=== PATIENT | male | born 1955 | race Caucasian/White ===

== ENCOUNTER 2018-08-14 14:11 | Emergency (ER) | payer MEDICAID, OTHER ==
[~2018-08-14] VITALS: Ht 170.2 cm; Wt 68.0 kg
--- NOTE | 2018-08-14 14:24 | ED Chest Pain ---
General Chief Complaint: Chest Pain Stated Complaint: CHEST PAIN; SOB Source: patient, RN notes reviewed Exam Limitations: no limitations History of Present Illness Date Seen by Provider: Aug 14, 2018 Time Seen by Provider: 14:23 Associated Symptoms: shortness of breath 62-year-old man with central substernal nonradiating chest pain that started 2 days ago. The pain starts following shortness of breath. He has chronic shortness of breath to cigarette smoking. Other CAD risk factors. Nothing provokes, nothing improves or worsens the pain. Pain last for about 30 minutes. Having productive cough with green sputum. No fevers or chills. Allergies and Home Medications Allergies Coded Allergies: No Known Drug Allergies (Unverified , 08/14/18) Home Medications Levofloxacin 750 Mg Tablet, 750 MG PO DAILY Prescribed by: GIO BAR on 08/14/18 1621 Patient Home Medication List Home Medication List Reviewed: Yes Review of Systems Review of Systems Constitutional: No chills, No fever Respiratory: Cough, Shortness of Air (intermittent) Cardiovascular: See HPI Gastrointestinal: Denies Nausea, Denies Vomiting Past Srprgxz-Cgkjvm-Brnplr Hx Past Med/Social Hx: Reviewed Nursing Past Med/Soc Hx Patient Social History Smoking Status: Current Everyday Smoker Recent Foreign Travel: No Contact w/Someone Who Travel: No Physical Exam Vital Signs Vital Signs - First Documented 08/14/18 14:15 Temp 98.0 Pulse 68 Resp 17 B/P (MAP) 159/90 (113) Pulse Ox 98 O2 Delivery Room Air Capillary Refill : Height, Weight, BMI Height: '" Weight: lbs. oz. kg; BMI Method: General Appearance: No Apparent Distress, WD/WN HEENT: PERRL/EOMI, TMs Normal, Normal ENT Inspection, Pharynx Normal Neck: Full Range of Motion, Normal Inspection Respiratory: Chest Non Tender, Lungs Clear, No Accessory Muscle Use, No Respiratory Distress, Decreased Breath Sounds Cardiovascular: Regular Rate, Rhythm, No Edema, No Gallop, No JVD, No Murmur, Normal Peripheral Pulses Extremity: Normal Capillary Refill, Normal Inspection, Normal Range of Motion, No Calf Tenderness Neurologic/Psychiatric: Alert, Oriented x3 Skin: Normal Color, Warm/Dry Progress/Results/Core Measures Results/Orders Lab Results Laboratory Tests Test 08/14/18 14:35 Range/Units White Blood Count 2.8 L 4.3-11.0 10^3/uL Red Blood Count 5.07 4.35-5.85 10^6/uL Hemoglobin 15.6 13.3-17.7 G/DL Hematocrit 46 40-54 % Mean Corpuscular Volume 90 80-99 FL Mean Corpuscular Hemoglobin 31 25-34 PG Mean Corpuscular Hemoglobin Concent 34 32-36 G/DL Red Cell Distribution Width 12.9 10.0-14.5 % Platelet Count 196 130-400 10^3/uL Mean Platelet Volume 9.7 7.4-10.4 FL Neutrophils (%) (Auto) 29 L 42-75 % Lymphocytes (%) (Auto) 55 H 12-44 % Monocytes (%) (Auto) 14 H 0-12 % Eosinophils (%) (Auto) 1 0-10 % Basophils (%) (Auto) 1 0-10 % Neutrophils # (Auto) 0.8 L 1.8-7.8 X 10^3 Lymphocytes # (Auto) 1.5 1.0-4.0 X 10^3 Monocytes # (Auto) 0.4 0.0-1.0 X 10^3 Eosinophils # (Auto) 0.0 0.0-0.3 10^3/uL Basophils # (Auto) 0.0 0.0-0.1 10^3/uL Prothrombin Time 13.2 12.2-14.7 SEC INR Comment 1.0 0.8-1.4 Activated Partial Thromboplast Time 33 24-35 SEC Sodium Level 137 135-145 MMOL/L Potassium Level 3.3 L 3.6-5.0 MMOL/L Chloride Level 97 L 98-107 MMOL/L Carbon Dioxide Level 26 21-32 MMOL/L Anion Gap 14 5-14 MMOL/L Blood Urea Nitrogen 6 L 7-18 MG/DL Creatinine 0.78 0.60-1.30 MG/DL Estimat Glomerular Filtration Rate > 60 BUN/Creatinine Ratio 8 Glucose Level 80 70-105 MG/DL Calcium Level 8.9 8.5-10.1 MG/DL Corrected Calcium 8.8 8.5-10.1 MG/DL Magnesium Level 1.9 1.8-2.4 MG/DL Total Bilirubin 0.7 0.1-1.0 MG/DL Aspartate Amino Transf (AST/SGOT) 107 H 5-34 U/L Alanine Aminotransferase (ALT/SGPT) 96 H 0-55 U/L Alkaline Phosphatase 85 40-136 U/L Troponin T 6 <=15 NG/L B-Type Natriuretic Peptide 176.2 H <100.0 PG/ML Total Protein 7.9 6.4-8.2 GM/DL Albumin 4.1 3.2-4.5 GM/DL My Orders Orders - GIO BAR MD Cbc With Automated Diff (08/14/18 14:29) Magnesium (08/14/18 14:29) Chest 1 View Ap/Pa Only (08/14/18 14:29) Ekg Tracing (08/14/18 14:29) Comprehensive Metabolic Panel (08/14/18 14:29) Protime With Inr (08/14/18 14:29) Partial Thromboplastin Time (08/14/18 14:29) O2 (08/14/18 14:29) Monitor-Rhythm Ecg Trace Only (08/14/18 14:29) Saline Lock/Iv-Start (08/14/18 14:29) BNP (08/14/18 14:29) Levofloxacin 750 Mg/150 Ml Iv (Levaquin (08/14/18 16:15) Medications Given in ED Current Medications Medications Dose Ordered Sig/Shiloh Route Start Time Stop Time Status Last Admin Dose Admin Levofloxacin/ Dextrose 150 ml @ 100 mls/hr ONCE ONCE IV 08/14/18 16:15 08/14/18 17:44 08/14/18 16:21 100 MLS/HR Vital Signs/I&O 08/14/18 14:15 Temp 98.0 Pulse 68 Resp 17 B/P (MAP) 159/90 (113) Pulse Ox 98 O2 Delivery Room Air Progress Progress Note : Progress Note Not hypoxic. Symptoms of early PNA. Will cover with Levaquin, first dose here. Initial ECG Impression Date: Aug 14, 2018 Initial ECG Impression Time: 14:23 Initial ECG Rate: 65 Initial ECG Rhythm: Normal Sinus Initial ECG Intervals: Normal Initial ECG Impression: Normal Initial ECG Comparisson: No Previous ECG Available Comment Sinus rhythm 65 bpm normal axis, normal intervals, no hypertrophy, no STEMI Diagnostic Imaging Diagonstic Imaging: Xray Plain Films/CT/US/NM/MRI: chest Comments Hyperinflation, scarring versus early right lower lobe infiltrate CAP: Antibiotics (s) Departure Impression Primary Impression: Pneumonia Disposition: 01 HOME, SELF-CARE Condition: Improved Departure-Patient Inst. Decision time for Depature: 16:18 Referrals: NO,LOCAL PHYSICIAN (PCP) Primary Care Physician Patient Instructions: Chronic Obstructive Pulmonary Disease (COPD), Including Emphysema, Community-Acquired Pneumonia in Adults Scripts Levofloxacin (Levaquin) 750 Mg Tablet 750 MG PO DAILY for 7 Days, #7 TAB 0 Refills Prov: GIO BAR MD 08/14/18 GIO BAR MD Aug 14, 2018 14:24
[2018-08-14 14:59] LABS: BASOPHILS % (AUTO) 1 % (0-10); EOSINOPHILS % (AUTO) 1 % (0-10); HEMATOCRIT 46 % (40-54); HEMOGLOBIN 15.6 G/DL (13.3-17.7); LYMPHOCYTES # (AUTO) 1.5 X 10^3 (1.0-4.0); LYMPHOCYTES % (AUTO) 55 % (12-44); MEAN CORPUSCULAR HEMOGLOBIN 31 PG (25-34); MEAN CORPUSCULAR HGB CONC 34 G/DL (32-36); MEAN CORPUSCULAR VOLUME 90 FL (80-99); MEAN PLATELET VOLUME 9.7 FL (7.4-10.4); MONOCYTES # (AUTO) 0.4 X 10^3 (0.0-1.0); MONOCYTES % (AUTO) 14 % (0-12); NEUTROPHILS # (AUTO) 0.8 X 10^3 (1.8-7.8); NEUTROPHILS % (AUTO) 29 % (42-75); PLATELET COUNT 196 10^3/uL (130-400); RED CELL DISTRIBUTION WIDTH 12.9 % (10.0-14.5); WHITE BLOOD COUNT 2.8 10^3/uL (4.3-11.0)
[2018-08-14 15:05] LABS: PROTHROMBIN TIME PATIENT 13.2 SEC (12.2-14.7)
--- NOTE | 2018-08-14 15:08 | NUR ---
RESTING IN BED DENIES NEEDS AT THIS TIME.
--- NOTE | 2018-08-14 15:14 | Diagnostic Imaging Report ---
INDICATION: Chest pain and dyspnea. There is hyperexpansion of both lungs. There is increased density in the right base which may be due to infiltrate of indeterminate age. There is no evidence of pneumothorax or significant pleural fluid. IMPRESSION: Air trapping likely due to background emphysema. Increased density in right lung base could be chronic and related to chronic infiltrate, although superimposed pneumonitis such as from aspiration cannot be excluded. Clinical correlation is recommended. Dictated by: Dictated on workstation # [id number]
[2018-08-14 15:24] LABS: CARBON DIOXIDE 26 MMOL/L (21-32); CHLORIDE 97 MMOL/L (98-107); POTASSIUM 3.3 MMOL/L (3.6-5.0); SODIUM 137 MMOL/L (135-145)
[2018-08-14 15:25] LABS: ALANINE AMINOTRANSFERASE 96 U/L (0-55); ALBUMIN 4.1 GM/DL (3.2-4.5); ALKALINE PHOSPHATASE 85 U/L (40-136); BILIRUBIN,TOTAL 0.7 MG/DL (0.1-1.0); BUN/CREATININE RATIO 8; CALCIUM 8.9 MG/DL (8.5-10.1); CREATININE SERUM 0.78 MG/DL (0.60-1.30); GFR ESTIMATED > 60; GLUCOSE 80 MG/DL (70-105); MAGNESIUM 1.9 MG/DL (1.8-2.4); TOTAL PROTEIN 7.9 GM/DL (6.4-8.2)
--- NOTE | 2018-08-14 16:09 | NUR ---
RESTING IN BED ET DENIES NEEDS AT THIS TIME.
[2018-08-14] MEDS ORDERED: LEVOFLOXACIN 750 MG/150 ML IV 150 ML IV ONE (16:15)
[2018-08-14] MEDS ORDERED: LEVO750T9 PO (16:21)
[2018-08-14 17:50] VITALS: BP 138/68
== END 2018-08-14 17:49 | disposition home or self-care (01) ==
LOC: ER FS 14:14
DX: J18.9 Pneumonia, unspecified organism (principal); F17.200 Nicotine dependence, unspecified, uncomplicated
CPT/HCPCS: 36415; 71045; 80053; 83735; 83880; 84484; 85025; 85610; 85730; 93041

== ENCOUNTER 2019-03-27 12:04 | Emergency (ER) | payer MEDICAID ==
[~2019-03-27] VITALS: Ht 170 cm; Wt 59.0 kg
[~2019-03-27 12:04] MED LIST: LEVO750T9 PO
--- NOTE | 2019-03-27 12:25 | ED General ---
General Stated Complaint: DEPAKOTE OVERDOSE History of Present Illness Date Seen by Provider: Mar 27, 2019 Time Seen by Provider: 12:17 Initial Comments Patient presents with complaint of feeling dizzy and off-balance for last 3 days some associated blurring of his vision. Admits that 3 days ago he started Depakote for his seizures and is also on his "mental health" medications, but he does not recall the names of. Denies any chest pain or shortness of air. Denies abdominal pain nausea vomiting. Further inquiry, nurse called pharmacy. Pt taking Depakote, seruquel and wellbutrin, then Dr Saini started Dilantin 1 wk ago (300tid) Allergies and Home Medications Allergies Coded Allergies: No Known Drug Allergies (Unverified , 08/14/18) Home Medications Levofloxacin 750 Mg Tablet, 750 MG PO DAILY Prescribed by: GIO BAR on 08/14/18 1627 Patient Home Medication List Home Medication List Reviewed: Yes Review of Systems Review of Systems Constitutional: see HPI, dizziness; No fever, No malaise, No weight gain, No weight loss EENTM: no symptoms reported Respiratory: No cough, No dyspnea on exertion, No hemoptysis, No orthopnea, No phlegm, No short of breath Cardiovascular: No chest pain Gastrointestinal: No abdominal pain, No nausea, No vomiting Musculoskeletal: No back pain, No joint pain, No muscle pain Psychiatric/Neurological: Denies Headache, Denies Numbness, Denies Paresthesia, Denies Pre-Existing Deficit; Seizure (few days ago and PCP started him on new medication); Denies Tingling, Denies Tremors, Denies Weakness Past Kraxipp-Yvcpjh-Gocccc Hx Past Med/Social Hx: Reviewed Nursing Past Med/Soc Hx Patient Social History Recent Foreign Travel: No Recent Hopitalizations: No Past Medical History Surgeries: No Respiratory: No Cardiac: Yes (UN DIAGNOSED HYPERTENSION) Hypertension Genitourinary: No Gastrointestinal: No Musculoskeletal: No Endocrine: No HEENT: No Cancer: No Psychosocial: No Integumentary: No Physical Exam Vital Signs Vital Signs - First Documented 03/27/19 03/27/19 12:30 12:38 Temp 36.7 Pulse 60 66 66 Resp 15 B/P (MAP) 119/78 (92) 131/76 (94) 110/73 (85) Pulse Ox 100 Capillary Refill : Height, Weight, BMI Height: 5'7.00" Weight: 150lbs. oz. 68.982454bh; BMI Method:Stated General Appearance: No Apparent Distress, WD/WN Eyes: Bilateral Eye PERRL, Bilateral Eye EOMI HEENT: PERRL/EOMI, TMs Normal, Normal ENT Inspection, Pharynx Normal Neck: Normal Inspection, Non Tender, Supple; No JVD Respiratory: Chest Non Tender, Lungs Clear, Normal Breath Sounds Cardiovascular: Regular Rate, Rhythm, No Edema, No Gallop, No JVD, No Murmur, Normal Peripheral Pulses Gastrointestinal: Normal Bowel Sounds, Non Tender, Soft; No Distended, No Guarding Back: Normal Inspection, No CVA Tenderness, No Vertebral Tenderness Extremity: Normal Capillary Refill, Non Tender Neurologic/Psychiatric: Alert, Oriented x3, No Motor/Sensory Deficits, Normal Mood/Affect, sr risk management consultant II-XII Norm as Tested Progress/Results/Core Measures Suspected Sepsis SIRS Temperature: Pulse: Respiratory Rate: Laboratory Tests 03/27/19 12:30: White Blood Count 3.8L Blood Pressure / Mean: Laboratory Tests 03/27/19 12:30: Creatinine 1.00, Platelet Count 169, Total Bilirubin 0.5 Results/Orders Lab Results Laboratory Tests Test 03/27/19 12:05 03/27/19 12:15 03/27/19 12:30 Range/Units Urine Color YELLOW Urine Clarity CLEAR Urine pH 7.5 5-9 Urine Specific [place] 1.010 L 1.016-1.022 Urine Protein NEGATIVE NEGATIVE Urine Glucose (UA) NEGATIVE NEGATIVE Urine Ketones NEGATIVE NEGATIVE Urine Nitrite NEGATIVE NEGATIVE Urine Bilirubin NEGATIVE NEGATIVE Urine Urobilinogen 0.2 NORMAL MG/DL Urine Leukocyte Esterase NEGATIVE NEGATIVE Urine RBC (Auto) NEGATIVE NEGATIVE Urine RBC NONE /HPF Urine WBC NONE /HPF Urine Squamous Epithelial Cells 0-2 /HPF Urine Crystals NONE /LPF Urine Bacteria NONE /HPF Urine Casts NONE /LPF Urine Mucus TRACE /LPF Urine Culture Indicated NO Urine Opiates Screen NEGATIVE NEGATIVE Urine Oxycodone Screen NEGATIVE NEGATIVE Urine Methadone Screen NEGATIVE NEGATIVE Urine Propoxyphene Screen NEGATIVE NEGATIVE Urine Barbiturates Screen POSITIVE H NEGATIVE Ur Tricyclic Antidepressants Screen NEGATIVE NEGATIVE Urine Phencyclidine Screen NEGATIVE NEGATIVE Urine Amphetamines Screen NEGATIVE NEGATIVE Urine Methamphetamines Screen NEGATIVE NEGATIVE Urine Benzodiazepines Screen NEGATIVE NEGATIVE Urine Cocaine Screen NEGATIVE NEGATIVE Urine Cannabinoids Screen NEGATIVE NEGATIVE White Blood Count 3.8 L 4.3-11.0 10^3/uL Red Blood Count 4.70 4.35-5.85 10^6/uL Hemoglobin 14.8 13.3-17.7 G/DL Hematocrit 43 40-54 % Mean Corpuscular Volume 92 80-99 FL Mean Corpuscular Hemoglobin 31 25-34 PG Mean Corpuscular Hemoglobin Concent 34 32-36 G/DL Red Cell Distribution Width 13.2 10.0-14.5 % Platelet Count 169 130-400 10^3/uL Mean Platelet Volume 9.3 7.4-10.4 FL Neutrophils (%) (Auto) 21 L 42-75 % Lymphocytes (%) (Auto) 55 H 12-44 % Monocytes (%) (Auto) 20 H 0-12 % Eosinophils (%) (Auto) 3 0-10 % Basophils (%) (Auto) 1 0-10 % Neutrophils # (Auto) 0.8 L 1.8-7.8 X 10^3 Lymphocytes # (Auto) 2.1 1.0-4.0 X 10^3 Monocytes # (Auto) 0.8 0.0-1.0 X 10^3 Eosinophils # (Auto) 0.1 0.0-0.3 10^3/uL Basophils # (Auto) 0.0 0.0-0.1 10^3/uL Neutrophils % (Manual) 21 % Lymphocytes % (Manual) 59 % Monocytes % (Manual) 14 % Eosinophils % (Manual) 6 % Band Neutrophils 0 % Blood Morphology Comment NORMAL Sodium Level 136 135-145 MMOL/L Potassium Level 4.0 3.6-5.0 MMOL/L Chloride Level 99 98-107 MMOL/L Carbon Dioxide Level 25 21-32 MMOL/L Anion Gap 12 5-14 MMOL/L Blood Urea Nitrogen 12 7-18 MG/DL Creatinine 1.00 0.60-1.30 MG/DL Estimat Glomerular Filtration Rate > 60 BUN/Creatinine Ratio 12 Glucose Level 88 70-105 MG/DL Calcium Level 8.8 8.5-10.1 MG/DL Corrected Calcium 8.7 8.5-10.1 MG/DL Total Bilirubin 0.5 0.1-1.0 MG/DL Aspartate Amino Transf (AST/SGOT) 36 H 5-34 U/L Alanine Aminotransferase (ALT/SGPT) 25 0-55 U/L Alkaline Phosphatase 63 40-136 U/L Total Protein 7.1 6.4-8.2 GM/DL Albumin 4.1 3.2-4.5 GM/DL Serum Alcohol < 10 <10 MG/DL My Orders Orders - MARTA RAI DO Orthostatic Vital Signs (Adult (03/27/19 12:20) Cbc With Automated Diff (03/27/19 12:20) Comprehensive Metabolic Panel (03/27/19 12:20) Urinalysis (03/27/19 12:20) Ekg Tracing (03/27/19 12:20) Drug Screen Stat (Urine) (03/27/19 12:20) Alcohol (03/27/19 12:20) Dilantin (Phenytoin) (03/27/19 12:29) Manual Differential (03/27/19 12:30) Walker (03/27/19 13:32) Vital Signs/I&O 03/27/19 03/27/19 12:30 12:38 Temp 36.7 Pulse 60 65 66 66 Resp 15 B/P (MAP) 119/78 (92) 149/89 (109) 131/76 (94) 110/73 (85) Pulse Ox 100 Capillary Refill : Progress Note : Progress Note Patient requests a walker prior to DC. Agreed to order one for assisted walking due to feeling off balance. Advised that sx should improve with going to lower dose of medication. Advised fall precautions and to follow-up with PCP in 1 wk if not improving, ER sooner if worse. Departure Communication (PCP) [id number] - discussed w Dr Saini regarding pt presentation, lab results and inquiry into meds. Decided to decrease Dilantin dose to 300 bid and await pending Dilantin level. Pt to follow- up in 1 week for re-eval. Impression Primary Impression: Dizziness Disposition: 01 HOME, SELF-CARE Condition: Stable Departure-Patient Inst. Referrals: DIANNE,DALTON ANTON (PCP/Family) Primary Care Physician Patient Instructions: Dizziness, Nonvertigo, (DC) Add. Discharge Instructions: Take your new medication DILANTIN (phenytoin) Twice daily (not three times daily as previously instructed). See Dr Saini in 1 week for re-evaluation. MARTA RAI DO Mar 27, 2019 12:25
[2019-03-27] MEDS ORDERED: PHEN300C4 (12:29)
[2019-03-27] MEDS ORDERED: BUPR150T14 (12:29)
[2019-03-27] MEDS ORDERED: DIVA250T12 (12:29)
[2019-03-27] MEDS ORDERED: QUET300T71 (12:29)
[2019-03-27 12:30] VITALS: BP_SYST 110; BP_SYST 119; BP_SYST 131; BP_DIAS 73; BP_DIAS 76; BP_DIAS 78
[2019-03-27 12:39] LABS: AMPHETAMINE SCREEN, URINE NEGATIVE (NEGATIVE); BARBITURATE SCREEN URINE POSITIVE (NEGATIVE); BENZODIAZEPINES SCREEN URINE NEGATIVE (NEGATIVE); CANNABINOID SCREEN, URINE NEGATIVE (NEGATIVE); COCAINE SCREEN URINE NEGATIVE (NEGATIVE); METHADONE STAT NEGATIVE (NEGATIVE); METHAMPHETAMINE SCREEN URINE S NEGATIVE (NEGATIVE); OPIATE SCREEN URINE NEGATIVE (NEGATIVE); OXYCODONE STAT NEGATIVE (NEGATIVE); PROPOXYPHENE STAT NEGATIVE (NEGATIVE); TRICYCLIC ANTIDEPRESSANTS SCRE NEGATIVE (NEGATIVE)
[2019-03-27 12:49] LABS: BASOPHILS % (AUTO) 1 % (0-10); EOSINOPHILS # (AUTO) 0.1 10^3/uL (0.0-0.3); EOSINOPHILS % (AUTO) 3 % (0-10); HEMATOCRIT 43 % (40-54); HEMOGLOBIN 14.8 G/DL (13.3-17.7); LYMPHOCYTES # (AUTO) 2.1 X 10^3 (1.0-4.0); LYMPHOCYTES % (AUTO) 55 % (12-44); MEAN CORPUSCULAR HEMOGLOBIN 31 PG (25-34); MEAN CORPUSCULAR HGB CONC 34 G/DL (32-36); MEAN CORPUSCULAR VOLUME 92 FL (80-99); MEAN PLATELET VOLUME 9.3 FL (7.4-10.4); MONOCYTES # (AUTO) 0.8 X 10^3 (0.0-1.0); MONOCYTES % (AUTO) 20 % (0-12); NEUTROPHILS # (AUTO) 0.8 X 10^3 (1.8-7.8); NEUTROPHILS % (AUTO) 21 % (42-75); PLATELET COUNT 169 10^3/uL (130-400); RED CELL DISTRIBUTION WIDTH 13.2 % (10.0-14.5); WHITE BLOOD COUNT 3.8 10^3/uL (4.3-11.0)
[2019-03-27 12:53] LABS: CLARITY,URINE CLEAR; COLOR,URINE YELLOW
[2019-03-27 12:54] LABS: BILIRUBIN,URINE NEGATIVE (NEGATIVE); GLUCOSE, URINE (UA) NEGATIVE (NEGATIVE); KETONES,URINE NEGATIVE (NEGATIVE); LEUKOCYTE ESTERASE ,URINE NEGATIVE (NEGATIVE); NITRITE,URINE NEGATIVE (NEGATIVE); PH,URINE 7.5 (5-9); PROTEIN,URINE NEGATIVE (NEGATIVE); SQUAMOUS EPITHELIAL CELL,UR 0-2 /HPF; UROBILINOGEN,URINE 0.2 MG/DL (NORMAL)
[2019-03-27 13:11] LABS: BUN/CREATININE RATIO 12; CARBON DIOXIDE 25 MMOL/L (21-32); CHLORIDE 99 MMOL/L (98-107); GFR ESTIMATED > 60; GLUCOSE 88 MG/DL (70-105); SODIUM 136 MMOL/L (135-145)
[2019-03-27 13:12] LABS: ALANINE AMINOTRANSFERASE 25 U/L (0-55); ALBUMIN 4.1 GM/DL (3.2-4.5); ALKALINE PHOSPHATASE 63 U/L (40-136); BAND NEUTROPHILS 0 %; BILIRUBIN,TOTAL 0.5 MG/DL (0.1-1.0); CALCIUM 8.8 MG/DL (8.5-10.1); EOSINOPHILS % (MANUAL) 6 %; LYMPHOCYTES % (MANUAL) 59 %; MONOCYTES % (MANUAL) 14 %; NEUTROPHILS % (MANUAL) 21 %; RBC MORPH NORMAL; TOTAL PROTEIN 7.1 GM/DL (6.4-8.2)
[2019-03-27 13:30] VITALS: BP 146/88
--- NOTE | 2019-03-27 13:45 | NUR ---
Attempted to call Susan Romero, patients ride, for discharge. Phone goes straight to voicemail and is unable to leave message. Patient stated he would call her after he is discharged.
== END 2019-03-27 13:54 | disposition home or self-care (01) ==
LOC: EDUNIT# 12:04 → ER FS 12:05
DX: R42 Dizziness and giddiness (principal); I10 Essential (primary) hypertension
CPT/HCPCS: 36415; 80053; 80185; 80306; 80320; 81000; 85007; 85027; 93005

== ENCOUNTER → 2019-04-25 | Outpatient (CLI) | payer MEDICAID ==
[~2019-04-25] VITALS: Ht 170 cm; Wt 59.0 kg
[~2019-04-25] MED LIST changes: +BUPR150T14; +DIVA250T12; +PHEN300C4; +QUET300T71; +REGADENOSON 0.4 MG/5 ML SYR (LEXISCAN) IV ONE
[2019-04-25] MEDS: CATHETER FLUSH 10 ML SYR IV PRN ×2 (12:09→13:22)
[2019-04-25 13:21] VITALS: BP 147/85
--- NOTE | 2019-04-25 16:08 | STRESS TEST ---
DATE OF SERVICE: 04/25/2019 LEXISCAN MYOVIEW STRESS TEST REFERRING PHYSICIAN: Dr. Mart Saini. Baseline heart rate is 58, baseline blood pressure 147/85. Baseline EKG is sinus rhythm with no ischemic changes. In summary, the patient received 10.67 mCi of technetium-99 Myoview and the resting images were obtained. Then, the patient received 0.4 mg of Lexiscan followed by 29.1 mCi of technetium-99 Myoview. Throughout the test, there were no EKG changes. The resting and stress images were reviewed and compared in the short axis, horizontal long axis, and vertical long axis views. Review of the images showed diaphragmatic attenuation with typical male pattern. No significant ischemia or infarction was seen. SSS is 0. TID value 1. On the gated images, the left ventricle appeared to be in normal size with normal contractility. Calculated ejection fraction is 72%. CONCLUSION: 1. The patient tolerated Lexiscan well. 2. Diaphragmatic attenuation with typical male pattern with no significant ischemia or infarction on SPECT images. 3. Normal left ventricular size with normal contractility. Calculated ejection fraction is 72%. Job ID: [id number] DocumentID: [id number] Dictated Date: 04/25/2019 15:49:16 [place] Marker Date: 04/25/2019 16:07:15 Dictated By: GIBRAN SCANLON MD
== END ==
LOC: CARD 11:33
PROVIDERS: ATTEND Internal Medicine Cardiovascular Disease
DX: J43.1 Panlobular emphysema (principal); E78.2 Mixed hyperlipidemia
CPT/HCPCS: 78452; 93017

== ENCOUNTER → 2019-04-26 | Outpatient (CLI) | payer MEDICAID ==
[~2019-04-26] MED LIST changes: -REGADENOSON 0.4 MG/5 ML SYR (LEXISCAN) IV ONE
== END ==
LOC: CARD 08:29
PROVIDERS: ATTEND Internal Medicine Cardiovascular Disease
DX: J43.1 Panlobular emphysema (principal); E78.2 Mixed hyperlipidemia
CPT/HCPCS: 93306

== ENCOUNTER 2019-12-05 18:11 | Emergency (ER) | payer MEDICAID, OTHER ==
[~2019-12-05] VITALS: Ht 170.1 cm; Wt 70.9 kg
[2019-12-05] MEDS ORDERED: LIDOCAINE/EPI 2% 1:100,00 (XYLOCAINE) 20 ML VIAL INJ ONE (18:15)
[2019-12-05] MEDS ORDERED: TETANUS,DIPTH,PERTUSS P/F (BOOSTRIX) 0.5 ML VIAL IM ONE (18:15)
--- OUTSIDE RECORDS SUMMARY | 2019-12-05 18:17 | XMS REPORT | Continuity of Care Document ---
Author Organization Unknown Address Unknown Phone Unavailable Allergies Active Description Code Type Severity Reaction Onset Reported/Identified Relationship to Patient Clinical Status Yes No Known Drug Allergies [id number] Drug Allergy Unknown N/A 08/14/2018 Medications There is no data. 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 NICOTINE DEPENDENCE, UNSPECIFIED, UNCOMP 08/14/2018 DIPIKA ANTON, GIO Plasencia Ot J18 .9 PNEUMONIA, UNSPECIFIED ORGANISM 08/14/2018 DIPIKA ANTON, GIO Plasencia Ot R07.81 PLEURODYNIA 08/16/2018 DIPIKA ANTON, GIO Plasencia Ot F17.200 NICOTINE DEPENDENCE, UNSPECIFIED, UNCOMP 08/16/2018 DIPIKA ANTON, GIO Plasencia Ot J18 .9 PNEUMONIA, UNSPECIFIED ORGANISM 08/16/2018 DIPIKA ANTON, GIO Plasencia Ot R07.81 PLEURODYNIA 03/27/2019 ROVENSTINE DO, MARTA L Ot I10 ESSENTIAL (PRIMARY) HYPERTENSION 03/27/2019 ROVENSTINE DO, MARTA L Ot R42 DIZZINESS AND GIDDINESS 03/30/2019 ROVENSTINE DO, MARTA L Ot I10 ESSENTIAL (PRIMARY) HYPERTENSION 03/30/2019 ROVENSTINE DO, MARTA L Ot R42 DIZZINESS AND GIDDINESS 04/30/2019 GIBRAN SCANLON MD Ot E78. 2 MIXED HYPERLIPIDEMIA 04/30/2019 GIBRAN SCANLON MD Ot J43. 1 PANLOBULAR EMPHYSEMA 06/18/2019 GIBRAN SCANLON MD Ot E78. 2 MIXED HYPERLIPIDEMIA 06/18/2019 GIBRAN SCANLON MD Ot J43. 1 PANLOBULAR EMPHYSEMA 06/18/2019 GIBRAN SCANLON MD Ot E78. 2 MIXED HYPERLIPIDEMIA 06/18/2019 GIBRAN SCANLON MD Ot J43. 1 PANLOBULAR EMPHYSEMA Procedures There is no data. Results Test Result Range Complete blood count (CBC) with automate d white blood cell (WBC) differential - 08/14/18 14:35 Blood leukocytes automated count (number/volume) 2.8 10*3/uL 4.3-11.0 Blood erythrocytes automated count (number/volume) 5.07 10*6/uL 4.35-5.85 Venous blood hemoglobin measurement (mass/volume) 15.6 g/dL 13.3-17.7 Blood hematocrit (volume fraction) 46 % 40-54 Automated erythrocyte mean corpuscular volume 90 [ foz_us] 80-99 Automated erythrocyte mean corpuscular h emoglobin (mass per erythrocyte) 31 pg 25-34 Automated erythrocyte mean corpuscular h emoglobin concentration measurement (mass/volume) 34 g/dL 32-36 Automated erythrocyte distribution width ratio 12. 9 % 10.0- 14.5 Automated blood platelet count (count/volume) 196 10*3/uL 130-400 Automated blood platelet mean volume measurement 9.7 [foz_us] 7.4-10.4 Automated blood neutrophils/100 leukocytes 29 % 42-75 Automated blood lymphocytes/100 leukocytes 55 % 12-44 Blood monocytes/100 leukocytes 14 % 0-12 Automated blood eosinophils/100 leukocytes 1 % 0-10 Automated blood basophils/100 leukocytes 1 % 0-10 Blood neutrophils automated count (number/volume) 0.8 10*3 1.8-7.8 Blood lymphocytes automated count (number/volume) 1.5 10*3 1.0-4.0 Blood monocytes automated count (number/volume) 0. 4 10*3 0.0-1.0 Automated eosinophil count 0.0 10*3/uL 0 .0-0.3 Automated blood basophil count (count/volume) 0.0 10*3/uL 0.0-0.1 PT panel in platelet poor plasma by coag ulation assay - 08/14/18 14:35 Prothrombin time (PT) in platelet poor plasma by coagu lation assay 13.2 s 12.2-14.7 INR in platelet poor plasma or blood by coagulation as say 1.0 0.8-1.4 Activated partial thromboplastin time (a PTT) in platelet poor plasma bycoagulation assay - 08/14/18 14:35 Activated partial thromboplastin time (a PTT) in platelet poor plasma bycoagulation assay 33 s 24-35 Serum or plasma lithium measurement (mol es/volume) - 08/14/18 14:35 BNP level 176.2 pg/mL <100.0 Comprehensive metabolic panel - 08/14/18 14:35 Serum or plasma sodium measurement (moles/volume) 137 mmol/L 135-145 Serum or plasma potassium measurement (moles/volume) 3.3 mmol/L 3.6-5.0 Serum or plasma chloride measurement (moles/volume) 97 mmol/L 98-107 Carbon dioxide 26 mmol/L 21-32 Serum or plasma anion gap determination (moles/volume) 14 mmol/L 5-14 Serum or plasma urea nitrogen measurement (mass/volume ) 6 mg/dL 7-18 Serum or plasma creatinine measurement (mass/volume) 0.78 mg/dL 0.60-1.30 Serum or plasma urea nitrogen/creatinine mass ratio 8 NRG Serum or plasma creatinine measurement w ith calculation of estimated glomerular filtration rate > NRG Serum or plasma glucose measurement (mass/volume) 80 mg/dL 70-105 Serum or plasma calcium measurement (mass/volume) 8.9 mg/dL 8.5-10.1 Serum or plasma total bilirubin measurement (mass/volu me) 0.7 mg/dL 0.1-1.0 Serum or plasma alkaline phosphatase yanet surement (enzymatic activity/volume) 85 U/L 40-136 Serum or plasma aspartate aminotransfera se measurement (enzymatic activity/volume) 107 U/L 5-34 Serum or plasma alanine aminotransferase measurement (enzymatic activity/volume) 96 U/L 0-55 Serum or plasma protein measurement (mass/volume) 7.9 g/dL 6.4-8.2 Serum or plasma albumin measurement (mass/volume) 4.1 g/dL 3.2-4.5 CALCIUM CORRECTED 8.8 mg/dL 8.5-10.1 Magnesium - 08/14/18 14:35 Magnesium 1.9 mg/dL 1.8-2.4 TROPONIN T - 08/14/18 14:35 TROPONIN T 6 % <=15 Urine drug screening test - 03/27/19 12: 05 Urine phencyclidine detection by screening method NEGATIVE NEGATIVE Urine benzodiazepines detection by screening method NEGATIVE NEGATIVE Urine cocaine detection NEGATIVE NEGATI VE Urine amphetamines detection by screening method N EGATIVE NEGATIVE Urine methamphetamine detection by screening method NEGATIVE NEGATIVE Urine cannabinoids detection by screening method N EGATIVE NEGATIVE Urine opiates detection by screening method NEGATI VE NEGATIVE Urine barbiturates detection POSITIVE N EGATIVE Screening urine tricyclic antidepressants detection NEGATIVE NEGATIVE Urine methadone detection by screening method NEGA TIVE NEGATIVE Urine oxycodone detection NEGATIVE NEGA TIVE Urine propoxyphene detection NEGATIVE N EGATIVE Complete urinalysis with reflex to cultu re - 03/27/19 12:05 Urine color determination YELLOW NRG Urine clarity determination CLEAR NR G Urine pH measurement by test strip 7.5 5-9 Specific gravity of urine by test strip 1.010 1.016-1.022 Urine protein assay by test strip, semi-quantitative NEGATIVE NEGATIVE Urine glucose detection by automated test strip NE GATIVE NEGATIVE Erythrocytes detection in urine sediment by light micr oscopy NEGATIVE NEGATIVE Urine ketones detection by automated test strip NE GATIVE NEGATIVE Urine nitrite detection by test strip NEGATIVE NEGATIVE Urine total bilirubin detection by test strip NEGA TIVE NEGATIVE Urine urobilinogen measurement by automated test strip (mass/volume) 0.2 mg/dL NORMAL Urine leukocyte esterase detection by dipstick NEG ATIVE NEGATIVE Automated urine sediment erythrocyte cou nt by microscopy (number/high power field) NONE NRG Automated urine sediment leukocyte count by microscopy (number/high power field) NONE NRG Bacteria detection in urine sediment by light microsco py NONE NRG Squamous epithelial cells detection in u rine sediment by light microscopy 0-2 NRG Crystals detection in urine sediment by light microsco py NONE NRG Casts detection in urine sediment by light microscopy NONE NRG Mucus detection in urine sediment by light microscopy TRACE NRG Complete urinalysis with reflex to culture NO NRG DILANTIN (PHENYTOIN) - 03/27/19 12:15 DILANTIN PHEN 25.2 % 10.0-20.0 Complete blood count (CBC) with automate d white blood cell (WBC) differential - 03/27/19 12:30 Blood leukocytes automated count (number/volume) 3.8 10*3/uL 4.3-11.0 Blood erythrocytes automated count (number/volume) 4.70 10*6/uL 4.35-5.85 Venous blood hemoglobin measurement (mass/volume) 14.8 g/dL 13.3-17.7 Blood hematocrit (volume fraction) 43 % 40-54 Automated erythrocyte mean corpuscular volume 92 [ foz_us] 80-99 Automated erythrocyte mean corpuscular h emoglobin (mass per erythrocyte) 31 pg 25-34 Automated erythrocyte mean corpuscular h emoglobin concentration measurement (mass/volume) 34 g/dL 32-36 Automated erythrocyte distribution width ratio 13. 2 % 10.0- 14.5 Automated blood platelet count (count/volume) 169 10*3/uL 130-400 Automated blood platelet mean volume measurement 9.3 [foz_us] 7.4-10.4 Automated blood neutrophils/100 leukocytes 21 % 42-75 Automated blood lymphocytes/100 leukocytes 55 % 12-44 Blood monocytes/100 leukocytes 20 % 0-12 Automated blood eosinophils/100 leukocytes 3 % 0-10 Automated blood basophils/100 leukocytes 1 % 0-10 Blood neutrophils automated count (number/volume) 0.8 10*3 1.8-7.8 Blood lymphocytes automated count (number/volume) 2.1 10*3 1.0-4.0 Blood monocytes automated count (number/volume) 0. 8 10*3 0.0-1.0 Automated eosinophil count 0.1 10*3/uL 0 .0-0.3 Automated blood basophil count (count/volume) 0.0 10*3/uL 0.0-0.1 Comprehensive metabolic panel - 03/27/19 12:30 Serum or plasma sodium measurement (moles/volume) 136 mmol/L 135-145 Serum or plasma potassium measurement (moles/volume) 4.0 mmol/L 3.6-5.0 Serum or plasma chloride measurement (moles/volume) 99 mmol/L 98-107 Carbon dioxide 25 mmol/L 21-32 Serum or plasma anion gap determination (moles/volume) 12 mmol/L 5-14 Serum or plasma urea nitrogen measurement (mass/volume ) 12 mg/dL 7-18 Serum or plasma creatinine measurement (mass/volume) 1.00 mg/dL 0.60-1.30 Serum or plasma urea nitrogen/creatinine mass ratio 12 NRG Serum or plasma creatinine measurement w ith calculation of estimated glomerular filtration rate > NRG Serum or plasma glucose measurement (mass/volume) 88 mg/dL 70-105 Serum or plasma calcium measurement (mass/volume) 8.8 mg/dL 8.5-10.1 Serum or plasma total bilirubin measurement (mass/volu me) 0.5 mg/dL 0.1-1.0 Serum or plasma alkaline phosphatase yanet surement (enzymatic activity/volume) 63 U/L 40-136 Serum or plasma aspartate aminotransfera se measurement (enzymatic activity/volume) 36 U/L 5-34 Serum or plasma alanine aminotransferase measurement (enzymatic activity/volume) 25 U/L 0-55 Serum or plasma protein measurement (mass/volume) 7.1 g/dL 6.4-8.2 Serum or plasma albumin measurement (mass/volume) 4.1 g/dL 3.2-4.5 CALCIUM CORRECTED 8.7 mg/dL 8.5-10.1 Serum or plasma ethanol measurement (mas s/volume) - 03/27/19 12:30 Serum or plasma ethanol measurement (mass/volume) < mg/dL <10 Manual absolute plasma cell count - 03/13 10/29 12:30 Blood monocytes/100 leukocytes 14 % NRG Manual blood segmented neutrophils/100 leukocytes 21 % NRG Blood band neutrophils/100 leukocytes 0 % NRG Manual blood lymphocytes/100 leukocytes 59 % NRG Manual eosinophils/100 leukocytes in nose 6 % NRG Blood erythrocyte morphology finding identification NORMAL NRG Encounters ACCT No. Visit Date/Time Discharge Status Pt. Type Provider Facility Loc./Unit Complaint [id number] 04/26/2019 08:29:00 23:59:59 CLS Outpatient GIBRAN SCANLON MD [facility] CARD DYSPNEA EXERTION,MIXED HYPERLIPIDEMIA,CHEST PAIN [id number] 04/25/2019 11:33:00 23:59:59 CLS Outpatient GIBRAN SCANLON MD [facility] CARD DYSPNEA EXERTION,MIXED HYPERLIPIDEMIA,CHEST PAIN [id number] 04/20/2019 16:00:00 23:59:59 CLS Preadmit GIBRAN SCANLON MD [facility] RT DYSPNEA EXERTION,MIXED HYPERLIPIDEMIA,CHEST PAIN [id number] 03/27/2019 12:05:00 13:54:00 DIS Emergency MARTA RAI DO [facility] ER FS DEPAKOTE OVERDO SE [id number] 08/14/2018 14:14:00 17:49:00 DIS Emergency GIO BAR MD [facility] ER FS CHEST PAIN; SOB
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
--- NOTE | 2019-12-05 19:00 | NUR ---
Report to Nanette RODRIGUEZ. 3 FSPD is present in ER with this patient.
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
[2019-12-05] MEDS ORDERED: METH4TAB10 PO (21:12)
[2019-12-05] MEDS ORDERED: CLIN300C11 PO (21:12)
[2019-12-05 21:16] VITALS: BP 104/90
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
== END 2019-12-05 21:16 ==
LOC: EDUNIT# 18:11 → ER FS 18:12
DX: S02.40DA Maxillary fracture, left side, initial encounter for closed fracture (principal); S02.40FA Zygomatic fracture, left side, initial encounter for closed fracture; S02.2XXA Fracture of nasal bones, initial encounter for closed fracture; S02.32XA Fracture of orbital floor, left side, initial encounter for closed fracture; S02.842A Fracture of lateral orbital wall, left side, initial encounter for closed fracture; S01.111A Laceration without foreign body of right eyelid and periocular area, initial encounter; S01.112A Laceration without foreign body of left eyelid and periocular area, initial encounter; S60.512A Abrasion of left hand, initial encounter; S40.812A Abrasion of left upper arm, initial encounter; S00.81XA Abrasion of other part of head, initial encounter; F10.129 Alcohol abuse with intoxication, unspecified; Z23 Encounter for immunization; Z89.021 Acquired absence of right finger(s); Y35.93XA Legal intervention, means unspecified, suspect injured, initial encounter
CPT/HCPCS: 12011; 70450; 70486; 90715

== ENCOUNTER 2021-12-05 17:49 | Emergency (ER) | payer MEDICAID ==
[~2021-12-05] VITALS: Ht 170.2 cm; Wt 68.0 kg
[~2021-12-05 17:49] MED LIST changes: +BUPR-105; -BUPR150T14; +CLIN-144 PO; +CYCL10TA25 PO; +METH4TAB10 PO
[2021-12-05 17:56] VITALS: BP 107/77
[2021-12-05 18:14] LABS: ABG BASE EXCESS -0.4 MMOL/L (-2.5-2.5); ABG OXYGEN SATURATION 96 % (94-100); ABG PCO2 42 MMHG (35-45); ABG PH 7.38 (7.37-7.43); ABG PO2 84 MMHG (79-93); ABG TCO2 26.1 MMOL/L (21.0-31.0)
[2021-12-05 18:15] LABS: ALLENS TEST NEGATIVE; INSPIRED O2 2L; PATIENT TEMP 36.7; VENTILATOR NO
[2021-12-05] MEDS ORDERED: RT-ALBUTEROL/IPRATROPIUM 3 ML (DUONEB) VIAL INH ONE (18:15)
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
== END 2021-12-05 18:53 | disposition left against medical advice (07) ==
LOC: EDUNIT# 17:49 → ER FS 17:50
DX: T59.811A Toxic effect of smoke, accidental (unintentional), initial encounter (principal); F10.229 Alcohol dependence with intoxication, unspecified; J44.9 Chronic obstructive pulmonary disease, unspecified; F17.210 Nicotine dependence, cigarettes, uncomplicated
CPT/HCPCS: 82375; 82805